=== PATIENT | female | born 1985 | race Caucasian/White ===

== ENCOUNTER 2016-07-01 | Emergency (ER) | payer OTHER, MEDICAID | END 2016-07-01 14:16 | disposition home or self-care (01) ==

== ENCOUNTER 2016-07-01 | Outpatient (CLI) | payer MEDICAID | END 2016-07-01 09:37 | disposition EMS.NT ==

== ENCOUNTER → 2021-11-30 | Outpatient (CLI) | payer MEDICAID | END | disposition left against medical advice (07) | LOC: EMS 01:59 | DX: R07.89 Other chest pain (principal); R20.0 Anesthesia of skin; M54.2 Cervicalgia; M79.602 Pain in left arm ==